=== PATIENT | female | born 1955 | race Caucasian/White ===

== ENCOUNTER 2017-01-23 11:03 | Day surgery (SDC) | payer OTHER ==
[2017-01-23] VITALS (12 sets, daily range): BP systolic 102–146; BP diastolic 53–79; PULSE 54–70; RESP 10–33; Ht 152.4 cm; Wt 78.8 kg
[~2017-01-23] VITALS: Ht 152.4 cm; Wt 78.8 kg
[~2017-01-23 11:03] MED LIST: CEFAZOLIN 2 GM/50 ML (PMX) 50 ML IVPB SCH; SOD CHLORIDE 0.9% 1,000 ML IV SCH
[2017-01-23] MEDS ORDERED: HYDR100T25 PO (11:28)
[2017-01-23] MEDS ORDERED: GEMF600T60 PO (11:28)
[2017-01-23] MEDS ORDERED: LOSA100T7 PO (11:29)
[2017-01-23] MEDS ORDERED: AMLO-147 PO (11:29)
[2017-01-23] MEDS ORDERED: ZOLP10TA5 PO (11:30)
[2017-01-23] MEDS ORDERED: ONDANSETRON 4 MG INJ IV PRN (12:00)
[2017-01-23] MEDS ORDERED: DIPHENHYDRAMINE 50 MG INJ IV PRN (12:00)
[2017-01-23] MEDS ORDERED: MEPERIDINE 25 MG INJ IV PRN (12:00)
[2017-01-23] MEDS ORDERED: METOCLOPRAMIDE 10 MG INJ IV PRN (12:00)
[2017-01-23] MEDS ORDERED: FENTAnyl 50 MCG/ML VIAL IV PRN ×3 (12:00)
[2017-01-23] MEDS ORDERED: HYDROmorphONE (0.2 MG/ML) 10ML SYG IV PRN ×2 (12:00)
[2017-01-23 12:29] LABS: BASOPHIL # 0.1 10^3/ul (0.0-0.1); BASOPHILS % 0.9 % (0.0-2.0); EOSINOPHILS # 0.2 10^3/ul (0.0-0.5); HEMATOCRIT 38.6 % (37.0-47.0); LYMPHOCYTES # 1.6 10^3/ul (0.8-2.9); LYMPHOCYTES % 30.2 % (15.0-51.0); MEAN CORPUSCULAR HEMOGLOBIN 29.3 pg (29.0-33.0); MEAN CORPUSCULAR HGB CONC 33.7 g/dl (32.0-37.0); MEAN CORPUSCULAR VOLUME 86.9 fl (82.0-101.0); MEAN PLATELET VOLUME 10.3 fl (7.4-10.4); MONOCYTE # 0.5 10^3/ul (0.3-0.9); MONOCYTES % 9.7 % (0.0-11.0); NEUTROPHIL # 2.9 10^3/ul (1.6-7.5); NEUTROPHILS % 55.8 % (39.0-77.0); PLATELET COUNT 272 10^3/UL (140-415); RED BLOOD COUNT 4.44 10^6/ul (4.20-5.40); WHITE BLOOD COUNT 5.3 10^3/ul (4.8-10.8)
[2017-01-23 12:51] LABS: ALBUMIN 4.3 g/dl (3.3-4.9); ALBUMIN/GLOBULIN RATIO 1.48; BILIRUBIN,INDIRECT 0.3 mg/dl (0-1.1); BILIRUBIN,TOTAL 0.3 mg/dl (0.2-1.3); TOTAL PROTEIN 7.2 g/dl (6.1-8.1)
[2017-01-23 12:52] LABS: CALCIUM 9.2 mg/dl (8.4-10.2); CREATININE 0.6 mg/dl (0.44-1.00); POTASSIUM 3.6 mmol/L (3.5-5.1)
[2017-01-23] MEDS ORDERED: BUPIVACAINE 0.25% (MPF) 30 ML INJ ONE (13:15)
[2017-01-23 13:34] LABS: INR 0.94; PROTIME 12.7 Sec (11.9-14.9)
[2017-01-23 13:43] LABS: PARTIAL THROMBOPLASTIN TIME 35.9 Sec (25.0-35.0)
[2017-01-23] MEDS ORDERED: FENTAnyl 50 MCG/ML VIAL ONE (13:50)
[2017-01-23] MEDS ORDERED: ROCURONIUM 50 MG INJ ONE (14:29)
[2017-01-23] MEDS ORDERED: LIDOCAINE 2% (SDV) 5 ML INJ ONE (14:29)
[2017-01-23] MEDS ORDERED: PROPOFOL 20 ML ONE (14:29)
[2017-01-23] MEDS ORDERED: CEFAZOLIN 1 GM INJ ONE (14:29)
[2017-01-23] MEDS ORDERED: SUGAMMADEX SODIUM 200 MG/2 ML VIAL IV ONE (14:29)
[2017-01-23] MEDS ORDERED: SUCCINYLCHOLINE CHLORIDE 100 MG/5 ML SYG IV ONE (14:29)
[2017-01-23] MEDS ORDERED: HYDROCODONE/APAP (10/325) TAB PO ONE (14:30)
--- NOTE | 2017-01-23 14:30 | OPR ---
Date/Time of Note Date/Time of Note DATE: 01/23/17 TIME: 14:27 Operative Report Procedure Date: Jan 23, 2017 Preoperative Diagnosis hemorrhoids Postoperative Diagnosis same Operation/Procedure Performed 1. ligation of internal hemorrhoids x 2 2. excision of external hemorrhoids x 2 3. rigid proctoscopy 4. therapeutic injection of subcutaneous local anesthesia Surgeon see signature line Landscape Crew Member none Anesthesia Type: general Estimated Blood Loss: 10 - 50 ml's Transfusion none Specimen left lateral and right posterior internal and external hemorrhoidal column Grafts/Implants none Complications none Indications This is a 61-year-old female with internal/external hemorrhoids. She requests surgical excision. Risks alternatives benefits and percent were discussed the patient. Patient expressed understanding consents to the operation. Procedure Description Patient taken to the OR and prepped and draped in usual sterile fashion. Surgical timeout was performed. IV antibiotics given. Rigid proctoscopy is performed. There is no evidence of any masses or lesions. Prep was fair. Attention was then paid to the left lateral internal/external hemorrhoidal complex. The left lateral internal hemorrhoidal artery was ligated with a [id number] 3-0 Vicryl suture. The external hemorrhoidal complex was then excised using 15 blade and hand-held LigaSure. Attention was then paid to the right posterior hemorrhoidal complex. [id number] 3-0 Vicryl sutures placed into the right posterior internal hemorrhoidal artery. The external hemorrhoid is then excised with a 15 blade and had a LigaSure. There is good hemostasis. Therapeutic subcutaneous local anesthesia was injected throughout the incision site. Dry dressings were applied. Erica BRUCE Jan 23, 2017 14:30
[2017-01-23] MEDS: HYDROmorphONE (0.2 MG/ML) 10ML SYG IV PRN ×3 (14:49→15:16)
== END 2017-01-23 16:10 | disposition home or self-care (01) ==
LOC: SDS 11:03
PROVIDERS: ATTEND Surgery
DX: K64.8 Other hemorrhoids (principal); I10 Essential (primary) hypertension; E11.9 Type 2 diabetes mellitus without complications; E78.00 Pure hypercholesterolemia, unspecified; F41.9 Anxiety disorder, unspecified; Z83.3 Family history of diabetes mellitus; E66.9 Obesity, unspecified; Z68.33 Body mass index [BMI] 33.0-33.9, adult; F32.9 Major depressive disorder, single episode, unspecified
CPT/HCPCS: 46250; 46946; 80053; 85025; 85610; 85730; J0690; J1170; J2765; J3010; Z7512; Z7610